=== PATIENT | male | born 1990 | race Caucasian/White ===

== ENCOUNTER 2024-07-15 11:21 | Emergency (ER) | payer OTHER, SELFPAY ==
--- NOTE | 2024-07-15 11:23 | ED.WOUNDLAC ---
HPI - Wound/Laceration General Chief Complaint: Wound/Laceration Stated Complaint: RT Hand Finger Cut Time Seen by Provider: 07/15/24 11:34 Source: patient, RN notes reviewed and old records reviewed Mode of arrival: ambulatory Limitations: no limitations History of Present Illness HPI narrative: 34-year-old male presents to the [facility] with complaints a laceration to dorsal 2nd finger right hand. States that it he was cleaning a knife and it slipped. Reports his last Tdap was 2 years ago. Patient reports Tdap approximately 2 years ago Patient tetanus UTD: Yes Treatments prior to arrival: other Related Data Allergies Allergy/AdvReac Type Severity Reaction Status Date / Time No Known Allergies Allergy Verified 07/15/24 11:37 Review of Systems Review of Systems: All systems reviewed & are unremarkable except as noted in HPI and below Constitutional: Constitutional: Reports no additional constitutional complaints ENT: Reports system reviewed and no additional complaints, except as documented Cardiovascular: Cardiovascular: Reports no additional cardiovascular complaints, Denies chest pain and Denies dyspnea Respiratory: Respiratory: Reports no additional respiratory complaints, Denies chest congestion, Denies cough and Denies dyspnea Musculoskeletal: Musculoskeletal: Reports no additional musculoskeletal complaints Integumentary/Breasts: Skin/Breast: Reports as per HPI and Reports wounds PMFSH Surgical History Surgical History (Updated 07/15/24 @ 11:49 by Marley Sparks APRN) History of appendectomy 04/2023 Comments At the time of my signature, I reviewed and agree with the nursing past medical, surgical, social, and family history. There is no relevant family history pertinent to the patient complaint. Exam Const: General: cooperative, healthy appearing, comfortable, no acute distress, well developed, alert and well nourished Nutritional Appearance: well nourished Orientation/consciousness: patient oriented x3 Limitations: no limitations HENMT: Head: normal to inspection Eyes: General: appearance normal, both eyes and all related structures Alignment and Position: alignment normal Neck: Neck: normal visual inspection, full ROM, no lymphadenopathy and no meningeal signs Chest: Chest palpation & inspection: normal inspection of the chest Resp: Effort & Inspection: normal respiratory effort and able to speak in complete sentences Cardio: Rate: regular rate Skin: General skin exam: normal color and no rashes or lesions noted Other: 1.2 cm superficial cut dorsal second finger. Bleeding controlled. Has full range of motion was sensation intact, capillary refill under 2 seconds Neuro: General: patient oriented x3, gait normal, moves all extremities and no meningeal signs Cognition (Neuro): normal cognition Speech: normal speech Gait exam (Neuro): Normal gait present Extrem: General: normal to inspection, full ROM, capillary refill normal and normal gait Psych: Appearance: grossly normal and well kempt Mental Status: mental status grossly normal Speech and movement: Normal speech and movement present and Clear speech present Affect: normal affect Attitude: cooperative Course Course Level of Care: Express Care Visit Vital Signs Vital signs: Vital Signs Temperature 97.7 F 07/15/24 11:35 Pulse Rate 69 07/15/24 11:35 Respiratory Rate 18 07/15/24 11:35 Blood Pressure 114/71 07/15/24 11:35 Pulse Oximetry 100 07/15/24 11:35 Oxygen Delivery Room Air 07/15/24 11:35 Temperature 97.7 F 07/15/24 11:35 Pulse Rate 69 07/15/24 11:35 Respiratory Rate 18 07/15/24 11:35 Blood Pressure 114/71 07/15/24 11:35 Pulse Oximetry 100 07/15/24 11:35 Oxygen Delivery Room Air 07/15/24 11:35 Reviewed MDM - Wound/Laceration MDM Narrative Medical decision making narrative: Patient sitting comfortably in exam room. Nontoxic, vitals stable. Patient presents with a superficial cut to the dorsal 2nd finger rain hand. Bleeding is controlled Patient is up-to-date Tdap Area cleaned with wound cleanser, irrigated, closed with skin glue Patient appropriate for outpatient treatment and follow-up Discharge instructions reviewed with patient, as well as provided in writing per nursing staff. The instructions also include specific and strict return/GO TO THE ER as well as f/u information. All questions have been answered, and the patient deny any further questions with discharge and discharge plan. Some parts of this dictation were generated by voice recognition software and may contain typographical and/or grammatical inaccuracies. Differential Diagnosis Differential diagnosis: Likely laceration, abscess, abrasion and avulsion of skin Critical Care Time Critical Care Time Critical Care Time: No Discharge Plan Discharge Clinical Impression: Finger laceration Qualifiers: Encounter type: initial encounter Finger: index finger Damage to nail status: without damage Foreign body presence: without foreign body Laterality: right Qualified Code(s): S61.210A - Laceration without foreign body of right index finger without damage to nail, initial encounter Patient Disposition: Home, Self-Care Condition: Stable Instructions: Antibiotic Form, Skin Adhesive Care (ED) Additional Instructions: Wash area twice daily with warm soapy water, pat dry. You can remove the splint to wash your hands, wear for the 1st 24-48 hours to reduce the chances of bending the area. Follow-up with primary care provider as needed Patient Language: Sinhala Follow-up/Referrals: UNKNOWN,DOCTOR [Non-Staff] - Time of Disposition: 11:59
[2024-07-15 11:35] VITALS: BP 114/71; PULSE 69; RESP 18; TEMP 36.5; O2SAT 100
--- OUTSIDE RECORDS SUMMARY | 2024-07-15 12:41 | XMS_ITS | Referral Summary ---
Author Organization [facility] [employer] Address [address] [place] [address] Care Team Providers Care Research Investigator Name Role Phone Unavailable Primary Care Provider Unavailabl e Source Comments [facility] [employer],non-owned Affiliates and Associated Physician Practices is amultiple site organization consisting of ambulatory clinics and hospital sitesin [place], [place], [place] and [place]. This disclosure is being madepursuant to the Care Everywhere program and may not contain all information available regarding this patient. Last updated 18.[facility] [employer] Allergies No known active allergies Medications Be aware that medications may not be up to date on this document. Always verify current medications with the patient. No known medications Social History Tobacco Use Types Packs/Day Years Used Date Smoking Tobacco: Former Smokeless Tobacco: Former Alcohol Use Standard Drinks/Week Comments Not Currently 0 (1 standard drink = 0.6 oz pur e alcohol) Sex and Gender Information Value Date Recorded Sex Assigned at Not on file Gender Identity Not on file Sexual Orientation Not on file Last Filed Vital Signs Vital Sign Reading Time Taken Comments Blood Pressure 138/78 02/13/2019 11:18 AM CDT Pulse 89 02/13/2019 11:18 AM CDT Temperature 36.9 C (98.5 F) 02/13/2019 11:18 AM CDT Respiratory Rate - - Oxygen Saturation 98% 02/13/2019 11:18 AM CDT Inhaled Oxygen Concentration - - Weight 114.3 kg (252 lb) 02/13/2019 11:18 AM CDT Height - - Body Mass Index - - Plan of Treatment Not on file
--- OUTSIDE RECORDS SUMMARY | 2024-07-15 12:41 | XMS_ITS | Continuity of Care Document ---
Author Organization [facility] Address [address] [place] [address] Phone Care Team Providers Care Sap Manager Name Role Phone Kalyani Santana MD Unavailable Unavailable Procedures Procedure Date Physical therapy evaluation Physical Tx excercises each 15 min Office/outpatient visit,[facility] 2005 Office/outpatient visit,[facility] 2005 Advance Directives Directive Yes / No Effective Date File Name No Information Encounters Encounter Description Practice Location Reason(s) For Visit Diagnoses Date Provider Providers Copied on Encounter [facility], [address] [place] [address], [id number], tel:[phone] [facility] No Information [address] [place], [place] [address], [place], [place], [id number] , . tel:[phone] Office/outpat ient visit,[facility], [address] [place] [address], [id number], tel:[phone] [facility] No Information [address] [place], [place] [address], [place], [place], [id number] , . tel:[phone] Referring Provider: Aman Cummings, [address] [place] [address], [place], [address]. tel:[phone] Office/outpat ient visit,[facility], [address] [place] [address], [id number], [place] tel:[phone] [facility] No Information [address] [facility], [place], [place], [id number] , [place]. tel:[phone] Referring Provider: Aman Cummings, [facility] [facility], [place], [address]. tel:[phone] Family History Family Member Type Diagnosis Age At Onset No Information Payers Payer name Insurance type Covered democrat ID Authorlloyd leonard(s) BC[employer] Of [facility] [id number] Social History Type Description Quantity Date Captured Comments Sex Male Smoking Status No Information Chief Complaint And Reason For Visit No Information Reason For Referral Reason For Referral No Information History Of Present Illness Encounter Date Complaint History Of Prese nt Illness No Information Functional Status Date Functional Assessmen t No Information Instructions Date Instruction Additional Infor mation No Information Assessments Type Assessment Date No Information Patient Care Teams Name Effective Dates (start - stop) Status Members No Information
--- OUTSIDE RECORDS SUMMARY | 2024-07-15 12:41 | XMS_ITS | Patient Health Summary ---
Author Organization [facility] [employer] Address [address] [place] [address] Care Team Providers Care Ticket Taker Name Role Phone Unavailable Primary Care Provider Unavailabl e Note from [facility] [employer] [facility],non-owned Affiliates and Associated Physician Practices is amultiple site organization consisting of ambulatory clinics and hospital sitesin [place], [place], [place] and [place]. This disclosure is being madepursuant to the Care Everywhere program and may not contain all information available regarding this patient. Last updated 18.[facility] [employer] Allergies No known active allergies Medications Be [...]
--- OUTSIDE RECORDS SUMMARY | 2024-07-15 12:41 | XMS_ITS | Clinical Summary ---
Author Organization [facility] [employer] Address [address] [place] [address] Care Team Providers Care Film Casting Operator Name Role Phone Unavailable Primary Care Provider Unavailabl e Source Comments [facility] [employer],non-owned Affiliates and Associated Physician Practices is amultiple site organization consisting of ambulatory clinics and hospital sitesin [place], [place], [place] and [place]. This disclosure is being madepursuant to the Care Everywhere program and may not contain all information available regarding this patient. Last updated 18.[facility] [employer] Allergies No known active allergies Medications Be aware that medications may not be up to date on this document. Always verify current medications with the patient. No known medications Family History Relation Name Status Comments Father Alive Mother Alive Social History Tobacco Use Types Packs/Day Years [...] Mass Index - - Plan of Treatment Health Maintenance Due Date Last Done Comments HIV SCREENING 2003 HEPATITIS C SCREENING 06/30/2006 DTAP/TDAP/TD VACCINES (1 - Tdap) 2007 HEPATITIS B VACCINE (1 of 3 - 19+ 3-dose series) 2007 COVID-19 VACCINE (1 - 2023-2 5 season) 2024 INFLUENZA VACCINE (#1) 2024 DEPRESSION SCREENING 06/04/2024 ZOSTER VACCINE (1 of 2) 2038 HIB VACCINE Aged Out No longer eligi ble based on patient's age to complete this topic HPV VACCINE Aged Out No longer eligi ble based on patient's age to complete this topic MENINGOCOCCAL (Group B) VACCINE Aged Out No longer eligible based on patient's age to complete this topic MENINGOCOCCAL VACCINE Aged Out No kumar irene eligible based on patient's age to complete this topic PNEUMOCOCCAL VACCINE Aged Out No long er eligible based on patient's age to complete this topic
--- OUTSIDE RECORDS SUMMARY | 2024-07-15 12:41 | XMS_ITS | Clinical Summary ---
Author Organization [facility] Address [address] [place] [address] Care Team Providers Care Assistant County Engineer Name Role Phone Alton Guillen MD Primary Care Provider + Luca Boateng MD Unavailable Allergies Active Allergy Reactions Criticality Noted Date Comments Penicillins Nausea only Low 03/29/2021 Pt reports this is from a past pcn inj. Medications omega 8-vtr-kti-fish oil 120-180-500 mg capsule Take by mouth Activ e clotrimazole 1 % creamIndication s:Tinea corporis Apply topically 2 (two) times a day 30 g 2 4 Active Active Problems Problem Noted Date Diagnosed Date Tinea corporis 12/04/2023 Assessment & Plan (12/04/2023 11:55 AM CDT): - clotrimazole topical Acute pain of left shoulder 12/04/2023 Assessment & Plan (12/04/2023 11:56 AM CDT): - suspect mild impingement due to form while using pelaton - rec decreased pelaton use for next 2 wks, stretching muscles in upper body, NSAIDS - if no improvement then will ref to PT Abdominal pain 08/10/2023 Assessment & Plan (08/10/2023 10:28 AM MANAGER ADMINISTRATIVE): - suspect due to scar tissue at site of surgery vs. Adhesions. - pt reassured but if sx longer than 1 mo continue or if he gets any BRBPR then will get colonoscopy to r/o pathology. 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, NSAIDS Assessment & Plan (08/03/2023 11:50 AM MANAGER ADMINISTRATIVE): Ordered x-ray right knee 4+Vw Rest Ice frequently every 4-6 hours Keep knee elevated Can use knee brace or shannon wrap for compression Naproxen 500 mg BID x 5 days See PCP for persisting symptoms, see ortho if x-ray c/f acute process or if unremarkable and ongoing pain, may need further imaging such as CT or MRI RLQ abdominal pain 04/18/2023 Assessment & Plan (04/18/2023 1:35 PM MANAGER ADMINISTRATIVE): - concern for acute appendicitis; high risk if not evaluated - stat CT abd, CBC, CMP - CT shows acute appendicitis - pt sent to ER. ER notified of case. Acute appendicitis, unspecified acute appendicit is type 04/18/2023 Pure hypercholesterolemia 11/29/2022 Assessment & Plan (11/29/2022 11:44 AM CDT): - discussed diet choices, lifestyle measures to improve cholesterol Annual physical exam 03/29/2021 Assessment & Plan (12/04/2023 11:55 AM CDT): - Reviewed with the patient BMI, blood pressure, diet, exercise, and encouraged healthy lifestyle choices. - Screened for high risk behaviors, diet and exercise habits, and symptoms of depression. - check screening labs - encouraged regular exercise and weight loss Assessment & Plan (11/29/2022 11:44 AM CDT): - Reviewed with the patient BMI, blood pressure, diet, exercise, and encouraged healthy lifestyle choices. - Screened for high risk behaviors, diet and exercise habits, and symptoms of depression. - reviewed screening labs - encouraged regular exercise and weight loss Assessment & Plan (03/29/2021 9:46 AM CDT): - Reviewed with the patient BMI, blood pressure, diet, exercise, and encouraged healthy lifestyle choices. - Screened for high risk behaviors, diet and exercise habits, and symptoms of depression. - check screening labs - encouraged regular exercise and weight loss - encouraged covid booster Tinnitus of both ears 03/29/2021 Assessment & Plan (03/29/2021 9:47 AM CDT): - suspect due to allergic rhinitis untreated - rec trial of otc claritin daily - f/u prn Tinea versicolor 03/29/2021 Assessment & Plan (03/29/2021 9:51 AM CDT): - benign - no treatment at this time as pt not interested in treatment BRBPR (bright red blood per rectum) 03/29/2021 Assessment & Plan (03/29/2021 9:49 AM CDT): - continue regular fiber intake - pt low risk for colon cancer - check FIT occult blood test, if neg no treatment - if pos will send for colonoscopy Resolved Problems Problem Noted Date Diagnosed Date Resolved Date Lower extremity edema 03/29/20212022 Assessment & Plan (03/29/2021 9:47 AM CDT): - stable - pt reassured - continue use of compression stockings Immunizations Name Administration Dates Next Due Influenza, Unspecified 04/18/2023(Deferr ed: Patient Refused),03/04/2022(Deferred: Patient Refused),03/23/2020(Deferred: Patient Refused) Pfizer SARS-CoV-2 Monovalent Vaccination (12+ Yrs) PURPLE 09/23/2020,09/02/2020 Tdap 03/29/2021 Surgical History Surgery Date Site/Laterality Comments APPENDECTOMY ORAL SURGERY Medical History Medical History Date Comments No pertinent past medical history Family History Medical History Relation Name Comments No Known Problems Father Diabetes Maternal Grandfather Dustin Redmond Diabetes Maternal Grandmother Kyleigh Redmond No Known Problems Mother Cancer Paternal Grandmother Earlelavern Laron Relation Name Status Comments Father Alive Maternal Grandfather Dustin Redmond Maternal Grandmother Kyleigh Redmond Mother Alive Paternal Grandmother Lyndsay Larry Social History Tobacco Use Types Packs/Day Years Used Date Smoking Tobacco: Former Cigarettes 0.5 4 0 06/04/2018 - 04/04/2022 Vaping Tobacco Cessation:Counseling Given: Not Answered [facility] Utilities Answer Date Recorded In the past 12 months has th e electric, gas, oil, or water company threatened to shut off services in your home? No 04/19/2023 Social Connection and Isolat ion Panel [NHANES] Answer Date Recorded In a typical week, how many times do you talk on the phone with family, friends, or neighbors? More than three times a week 04/19/2023 How often do you get togethe r with friends or relatives? Three times a week 04/19/2023 How often do you attend chur ch or adventist services? Never 04/19/2023 Do you belong to any clubs o r organizations such as sabianist groups, unions, fraternal or athletic groups, or school groups? No 04/19/2023 How often do you attend meet ings of the clubs or organizations you belong to? Never 04/19/2023 Are you , , di vorced, , never , or living with a partner? 04/19/2023 AUDIT-C Answer Date Recorded Q1: How often do you have a drink containing alc ohol? Monthly or less 12/04/2023 Q2: How many drinks containi ng alcohol do you have on a typical day when you are drinking? 1 or 2 12/04/2023 Q3: How often do you have si x or more drinks on one occasion? Less than monthly 12/04/2023 Overall Financial Resource Strain (CARDIA) Answe r Date Recorded How hard is it for you to pa y for the very basics like food, housing, medical care, and heating? Not hard at all 04/19/2023 PHQ-2 Answer Date Recorded PHQ-2 Total Score (If total score is 3 or more points, staff should administer the PHQ-9) 0 12/04/2023 Hunger Vital Sign Answer Date Recorded Within the past 12 months, y ou worried that your food would run out before you got the money to buy more. Never true 04/19/20 23 Within the past 12 months, t he food you bought just didn't last and you didn't have money to get more. Never true 04/19/2023 PRAPARE - Transportation Answer Date Re corded In the past 12 months, has l ack of transportation kept you from medical appointments or from getting medications? No 04/04 In the past 12 months, has l ack of transportation kept you from meetings, work, or from getting things needed for daily living? No 04/19/2023 Housing Stability Vital Sign Answer Zack e Recorded In the last 12 months, was t here a time when you were not able to pay the mortgage or rent on time? No 04/19/2023 In the last 12 months, how many places have you lived? 1 04/19/2023 In the last 12 months, was t here a time when you did not have a steady place to sleep or slept in a [place] health care facility (including now)? No 04/19/2023 Personal Safety Answer Date Recorded Have you ever been in or are you currently in a harmful physical or emotional relationship or is someone making you feel afraid or unsafe? Denies 04/18/2023 Sex and Gender Information Value Date Recorded Sex Assigned at Not on file Legal Sex Male 3:58 PM CDT Gender Identity Male 11/22/2022 8:17 AM CDT Sexual Orientation Straight 11/22/2022 8: 17 AM CDT Obstetrics History Last Filed Vital Signs Vital Sign Reading Time Taken Comments Blood Pressure 111/76 12/04/2023 11:21 AM CDT Pulse 68 12/04/2023 11:21 AM CDT Temperature 36.4 C (97.6 F) 12/04/2023 11:21 AM CDT Respiratory Rate 18 12/04/2023 11:2 1 AM CDT Oxygen Saturation 98% 12/04/2023 11: 21 AM CDT Inhaled Oxygen Concentration - - Weight 100.8 kg (222 lb 4.8 oz) 024 11:21 AM CDT Height 182.9 cm (6') 12/04/2023 11:21 AM CDT Body Mass Index 30.15 12/04/2023 11:21 AM CDT Plan of Treatment Health Maintenance Due Date Last Done Comments Hepatitis C Screening 1988 Varicella Vaccines (1 of 2 - 13+ 2-dose series) 2001 Hepatitis B Screening 2006 Covid-19 Vaccine (4 - 2023-2 5 season) 2024 04/11/2021, 09/23/2020, 09/02/2020 Influenza Vaccine (#1) 2024 Depression Screening 12/03/2024 12/04/2023, 11/29/2022, 03/29/2021 Regular Well Visit/Exam 18-64 12/03/2024, 11/29/2022, 03/29/2021 DTaP/Tdap/Td Vaccine (2 - Td or Tdap) 03/29/2031 03/29/2021 HPV Vaccines Aged Out No longer eligi ble based on patient's age to complete this topic Pneumococcal vaccine <65 Aged Out No longer eligible based on patient's age to complete this topic Insurance [employer] ACCESS [employer] OPEN ACCESS [employer] OPEN ACCESS Advance Directives For more information, please contact: [phone] * Full Code (Latest Code Status on File) Date Activated Date Inactivated Comments 04/18/2023 8:26 PM 04/19/2023 11:12 PM Care Teams Assistant County Engineer Relationship Specialty Start Date End Date Alton Guillen MD [address] [place] [id number] PCP - General Family Medicine 03/15/21 Luca Boateng MD [address] [place] [id number] Consulting Physician General Surgery 04/19/23
--- OUTSIDE RECORDS SUMMARY | 2024-07-15 12:41 | XMS_ITS | Clinical Summary ---
Author Organization [facility] Address [address] [place] [address] Care Team Providers Care Uat Tester Name Role Phone Unavailable Primary Care Provider Unavailabl e Immunizations Immunization Administration Dates Next Due Covid-19, Mrna, Lnp-s, Pf, 30 Mcg/0.3 Ml Dose (P fizer) 04/11/2021 Social History Tobacco Use Types Packs/Day Years Used Date Smoking Tobacco: Never Assessed Sex and Gender Information Value Date Recorded Sex Assigned at Not on file Legal Sex Male 12:12 PM [employer] Gender Identity Not on file Sexual Orientation Not on file Plan of Treatment Health Maintenance Due Date Last Done Comments Hepatitis C Virus (HCV) Screening 1988 Hepatitis B Immunization (1 of 3 - 19+ 3-dose series) 2007 Influenza Immunization (#1) 2024 SARS-COV-2 Immunization ( season) 2024 04/11/2021, 09/23/2020, 09/02/2020 Respiratory Syncytial Virus (RSV) Immunization (Adult) (1 - 1-dose 75+ series) 2063 DTaP/Tdap/Td Immunization Discontinued 03/29/2021 TdaP Immunization Completed 03/29/2021 Meningococcal Immunization (ACWY) Aged Out No longer eligible based on patient's age to complete this topic Pneumococcal Immunization Combined Aged Out No longer eligible based on patient's age to complete this topic Rotavirus Immunization Aged Out No lo nger eligible based on patient's age to complete this topic
--- OUTSIDE RECORDS SUMMARY | 2024-07-15 12:42 | XMS_ITS | Referral Summary ---
Author Organization [facility] Address [address] [place] [address] Care Team Providers Care Model Maker Fiberglass Name Role Phone Alton Guillen MD Primary Care Provider + Luca Boateng MD Unavailable Allergies Active Allergy Reactions Criticality Noted Date Comments Penicillins Nausea only Low 03/29/2021 Pt reports this is from a past pcn inj. Medications omega 4-gdt-xqk-fish oil 120-180-500 mg capsule Take by mouth [...] 08/10/2023 Assessment & Plan (08/10/2023 10:28 AM REPAIRER HELPER): - suspect due to scar tissue at site of surgery vs. Adhesions. - pt reassured but if sx longer than 1 mo continue or if he gets any BRBPR then will get colonoscopy to r/o pathology. 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, NSAIDS Assessment & Plan (08/03/2023 11:50 AM REPAIRER HELPER): Ordered x-ray right knee 4+Vw Rest Ice [...] 04/18/2023 Assessment & Plan (04/18/2023 1:35 PM REPAIRER HELPER): - concern for acute appendicitis; high risk [...] Vaccination (12+ Yrs) PURPLE 09/23/2020,09/02/2020 Tdap 03/29/2021 Social History Tobacco Use Types Packs/Day Years Used Date Smoking Tobacco: Former Cigarettes 0.5 4 0 06/04/2018 - 04/04/2022 Vaping Tobacco Cessation:Counseling Given: Not Answered [facility] Utilities Answer Date Recorded In the past 12 months has [employer], oil, or water [employer] threatened to shut off services in your [...] often do you attend chur ch or quaker services? Never 04/19/2023 Do you belong to any clubs o r organizations such as judaism groups, unions, fraternal or athletic groups, or [...] place to sleep or slept in a care home (including now)? No 04/19/2023 Personal Safety Answer [...] Orientation Straight 11/22/2022 8: 17 AM CDT Last Filed Vital Signs Vital Sign Reading [...] 12/04/2023 11:21 AM CDT Plan of Treatment Not on file Insurance [employer] OPEN ACCESS [employer] OPEN ACCESS HE[employer] OPEN ACCESS Advance Directives For more information, please contact: [phone] * Full Code (Latest Code Status on File) Date Activated Date Inactivated Comments 04/18/2023 8:26 PM 04/19/2023 11:12 PM Care Teams Model Maker Fiberglass Relationship Specialty Start Date End Date Alton Guillen MD [address] [address] PCP - General Family Medicine 03/15/21 Luca Boateng MD [address] [address] Consulting Physician General Surgery 04/19/23
--- OUTSIDE RECORDS SUMMARY | 2024-07-15 12:46 | XMS_ITS | Continuity of Care Document ---
Author Organization [facility] Address [address] [place] [address] Phone Care Team Providers Care Fax Machine Operator Name Role Phone Kalyani Santana MD Unavailable Unavailable Procedures Procedure Date Physical therapy evaluation Physical Tx excercises each 15 min Office/outpatient visit,[facility] 2005 Office/outpatient visit,[facility] 2005 Advance Directives Directive Yes / No Effective Date File Name No Information Encounters Encounter Description Practice Location Reason(s) For Visit Diagnoses Date Provider Providers Copied on Encounter [facility], [address] [place] [address], [id number], tel:[phone] [facility] No Information [address] [place], [place] [address], [place], [place], [id number] , . tel:[phone] Office/outpat ient visit,[facility], [address] [place] [address], [id number], tel:[phone] [facility] No Information [address] [place], [place] [address], [place], [place], [id number] , . tel:[phone] Referring Provider: Aman Cummings, [address] [place] [address], [place], [address]. tel:[phone] Office/outpat ient visit,[facility], [address] [place] [address], [id number], [place] tel:[phone] [facility] No Information [address] [facility], [place], [place], [id number] , [place]. tel:[phone] Referring Provider: Aman Cummings, [facility] [facility], [place], [address]. tel:[phone] Family History Family Member Type Diagnosis Age At Onset No Information Payers Payer name Insurance type Covered democrat ID Authorlloyd leonard(s) [employer] Of [facility] [id number] Social History Type Description Quantity Date Captured [...]
== END 2024-07-15 12:20 | disposition home or self-care (01) ==
PROVIDERS: Emergency Provider Nurse Practitioner; PCP Family Medicine
DX: S61.210A Laceration without foreign body of right index finger without damage to nail, initial encounter (principal); W26.0XXA Contact with knife, initial encounter
CPT/HCPCS: 12001; 99212; G0463